=== PATIENT | female | born 2005 | race Caucasian/White ===

== ENCOUNTER 2024-04-16 21:28 | Emergency (ER) | payer BC, SELFPAY ==
[2024-04-16 21:34] VITALS: BP 128/76
--- NOTE | 2024-04-16 22:19 | ED.GENMED ---
History of Present Illness
General
Chief Complaint: Abdominal Symptoms
Source: patient
Exam Limitations: none
Time Seen by Provider: 04/16/24 21:45
History of Present Illness
History of Present Illness:
This is a 18 year old female that comes in with c/o low back pain. States that she has been moving furniture in her room and started with low back pain. States that this is radiating around to the sided and into the abd. States that she had a sore
throat and was tested for mono. States that this was negative but the PCP gave her Prednisone 20mg tablets TID for 5 days. States that she stopped taking this when she started to feel better. State that that it when her low back pain started. States
that today she felt it was a little worse and she was nauseated. Denies any fever, chills chest pain, SOB, vomiting, diarrhea, headache, dizziness, urinary burning.
Past History
Past History
ED Past Medical History: Asthma (Sport induced) and Other (Ovarian cyst, Heart murmer as child)
ED Past Surgical History: None
Social History
Tobacco: Non-smoker
Alcohol: Occasional
Personal: Single
Living: with family
Review of Systems
Review of Systems
All Other Systems: ROS reviewed and negative except as documented in HPI and ROS
Constitutional: Reports no symptoms; Denies fever or chills
EENT: Reports no symptoms
Respiratory: Reports no symptoms; Denies cough or trouble breathing
Cardiac: Reports no symptoms; Denies chest pain
ABD/GI: Reports abdominal pain (pain around the flank and into the lower abd) and nausea; Denies vomiting or diarrhea
: Reports no symptoms; Denies dysuria, frequency or urgency
Musculoskeletal: Reports back pain (Low back pain)
Skin: Reports no symptoms
Neurological: Reports no symptoms; Denies dizzy or headache
Psychiatric: Reports no symptoms
Phy Exam
General Physical Exam
General Presentation: well appearing and no apparent distress
General age: appears stated age
General Skin: warm and dry
General Habitus: normal
General Mental: alert
General Hydration: appears well hydrated
ENT Exam
ENT Exam: TM's normal, pharynx normal and neck supple
Eye Exam
Eye Exam: EOMI
Cardiovascular Exam
Cardiovascular Exam: regular rate/rhythm, no edema, no murmur and normal peripheral pulses
Pulmonary Exam
Pulmonary Exam: lungs clear, no respiratory distress, no rales, chest non tender, no crackles, no rhonchi, no wheezing and no cough
Gastrointestinal Exam
Gastrointestinal Exam: normal bowel sounds, non tender, soft, no organomegaly, no pulsatile mass and non distended
Musculoskeletal Exam
Musculoskeletal Exam: full ROM, no edema and other (Negative for spinal tenderness with palpation. Negative with straight leg raise or going up on her toes. Able to bend forward and states that this feel better. )
Skin Exam
Skin Exam: normal color, warm/dry, no rash and no petechia
Psychiatric Exam
Psychiatric Exam: normal mood/affect
Course
Orders/Labs/Results
Orders:
Orders
04/16/24 22:18
Ibuprofen [Motrin] 600 mg PO NOW STA
Lumbar Spine Complete, 4 View [CR Lumbar Spine Comp Min 4 Vw*] Urgent
Comment:
Reason For Exam: Pain low back
04/16/24 22:24
HCG, Urine Qualitative Screen Urgent
Date Specimen was Collected: 04/16/24
Time Specimen was Collected: 22:19
Comment: ADD ON
Urinalysis Reflex To Culture Urgent
Date Specimen was Collected: 04/16/24
Time Specimen was Collected: 22:19
Urine Microscopic Reflex Cult Urgent
Urine Culture Urgent
ANIL Source: U
Specimen Description:
Date Specimen was Collected: 04/16/24
Time Specimen was Collected: 22:19
04/16/24 22:46
CT Abd/pel Without Iv Or Oral Urgent
Comment:
Reason For Exam: lOWER ABD PAIN
04/16/24 22:51
Add On- LAB Urgent
Tests Added?: URINE hcg
Abnormal Lab Results
04/16/24
22:24
Ur Occult Blood Reflex 1+ A
(Negative)
Leukocyte Esterase Rfl 1+ A
(Negative)
Urine RBC 3-6 A /HPF
(0-2)
Urine Bacteria (Reflex) Many A
(Negative)
Vital Signs
Initial and Last Documented VS:
Initial Vital Signs
Temp Pulse Resp BP Pulse Ox
98.3 F 85 20 128/76 99
04/16/24 21:34 04/16/24 21:34 04/16/24 21:34 04/16/24 21:34 04/16/24 21:34
Last Documented Vital Signs
Temp Pulse Resp BP Pulse Ox
98.3 F 85 20 128/76 99
04/16/24 21:34 04/16/24 21:34 04/16/24 21:34 04/16/24 21:34 04/16/24 21:34
MDM/Problems Addressed
Differential Diagnosis Includes:
Muscle strain, Renal calculus
MDM/Problems Addressed:
This is a 18 year old female that comes in with c/o low back pain that radiates around to the sided and into her lower abd.
Will get urine, and Lumbar X-ray.
Back into see patient. Explained that her urine is positive for blood but no infection. will get CT to r/o a renal calculus.
Into see patient. Reviewed CT scan. Explained that there is no hydronephrosis or stones in the ureter but there is punctate in the kidneys. This is most likely back discomfort due to moving furniture. Patient states that she feels better after the
Ibuprofen. Explained that she can use the Ibuprofen 600mg every 6 hours with food, Increase her water intake and use heat or ice to the back which ever makes her feel better. Follow up with the family doctor. return with any concerns.
Chronic conditions affecting care:
NA
Acute Exacerbation and/or Progression of Chronic Illness:
NA
*Radiology
Radiology exam reviewed: preliminary read by ED provider (Lumbar spine-Negative for fracture or acute disease process. ), radiology read reviewed (CT night hawk- NO evidence for acute process by noncontrast Ct. Punctate nonobstructing calculi in the
right kidney. NO evidence of ureteral calculus or hydronephrosis. Contracted gallbladder. The appendix is unremarkable. No evidence for bowel obstruction or free air. IUD is present. Trace free ) and other (CT cont- free fluid in the pelvic
cul-de-sac. )
*Pulse Oximetry
Patient hypoxic: no
*EKG
Interpreted by ED Provider?: NA
Rate: EKG- N/A
*Ultrasonographer Interpretation
Rate: Ultrasonographer- N/A
*Critical Care Note
Total Time (30-74mins, 75-104mins- exclusive of procedures): Not Applicable
ED Attending Note
-
Portions of this chart may have been created with voice recognition software.� Occasional wrong word or��sound alike� substitutions may have occurred due to the inherent limitations of voice recognition software.
Discharge Plan
Departure
Patient Disposition: Home (Routine Discharge)
Date of Disposition: 04/17/24
Time of Disposition: 01:21
Patient with high blood pressure during this ER visit?: Yes
Condition: Good
Covid-19: Not Applicable
Discharge Problem:
Low back pain
Instructions: Low Back Pain (DC)
Referrals:
UNKNOWN - PT DOES,NOT KNOW [Family Provider] -
Activity Restrictions/Additional Instructions:
As discussed, your urine shows some blood but there is no infection. Your CT is negative for any acute process. Your discomfort is most likely coming form the low back. Please increase your water intake to 8-8oz glasses daily. You may use Ibuprofen
600mg every 6 hours with food. Heat or ice to the low back. Follow up with the family doctor. IF YOU HAVE ANY OTHER CONCERNS PLEASE RETURN TO THE EMERGENCY ROOM.
Interventions
Interventions:
*Risk Screen - Suicide Last Done: 04/16/24 21:34
*General Assessment Last Done: 04/16/24 21:34
*Neglect/Abuse Screening Last Done: 04/16/24 21:34
LJ-[id number]-[id number] Assessment Last Done: 04/16/24 22:30
Discharge Date and Time
Print Language: [place]
[2024-04-16] MEDS: MOTRIN 600 MG PO (22:22)
[2024-04-16 22:34] LABS: Urine Albumin Negative (Neg - Trace); Urine Bilirubin Negative (Negative); Urine Character Clear (Clear); Urine Color Yellow; Urine Glucose Negative (Negative); Urine Ketone Negative (Negative); Urine Leukocyte 1+ (Negative); Urine Nitrite Negative (Negative); Urine Occult Blood 1+ (Negative); Urine Urobilinogen Negative (Neg - 1+); Urine pH 6.5 (5.0-9.0)
[2024-04-16 22:44] LABS: Urine Bacteria Many (Negative)
[2024-04-16 23:05] LABS: HCG, Urine Qualitative Screen Negative
[2024-04-17 01:28] VITALS: BP 123/76
== END 2024-04-17 01:30 | disposition home or self-care (01) ==
LOC: EMR 21:28
PROVIDERS: Clinical Nurse Specialist Family Health; EMERGENCY PHYSICIAN Emergency Medicine
DX: M54.50 Low back pain, unspecified (principal); R10.30 Lower abdominal pain, unspecified; R03.0 Elevated blood-pressure reading, without diagnosis of hypertension; J45.909 Unspecified asthma, uncomplicated; N83.209 Unspecified ovarian cyst, unspecified side; Z88.1 Allergy status to other antibiotic agents
CPT/HCPCS: 99284; 72110; 74176; 81003; 81015; 81025; 87086